=== PATIENT | male | born 1995 | race African-American/Black ===

== ENCOUNTER 2018-05-30 09:09 | Emergency (ER) | payer SELFPAY ==
[2018-05-30] MEDS ORDERED: Clindamycin 150 MG CAP PO SCH (10:30)
== END 2018-05-30 10:53 | disposition home or self-care (01) ==
LOC: ERS 09:09
DX: K04.7 Periapical abscess without sinus (principal); F17.210 Nicotine dependence, cigarettes, uncomplicated
CPT/HCPCS: 41800

== ENCOUNTER 2018-07-09 12:54 | Emergency (ER) | payer SELFPAY | END 2018-07-09 13:46 | disposition home or self-care (01) | LOC: ERS 12:54 | DX: K04.7 Periapical abscess without sinus (principal); F17.210 Nicotine dependence, cigarettes, uncomplicated | CPT/HCPCS: 99282 ==